=== PATIENT | female | born 1995 ===

== ENCOUNTER 2019-04-23 15:32 | Emergency (ER) | payer SELFPAY ==
[2019-04-23] MEDS ORDERED: Sodium Chloride 0.9% 1,000 ML IV ONE (16:43)
--- NOTE | 2019-04-23 17:04 | EDM.PDOC ---
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 Patient states she believes she is approximately 17 weeks gestation but has not received any care and is just guessing her last menstrual period. Patient states over the top past 2 weeks she has had spotting and she has not gone in to see anybody regarding this. Patient states starting this morning she was passing large amounts of clots. Patient states she then decided to come to the ED due to the excess amount of clot she was passing. Patient expresses a cramping like sensation as if she is having her menstrual cycle but denies any other abdominal pain or other symptoms at this time. Patient denies any health history. Patient denies fever, chills, chest pain, shortness of breath, or cough. Denies headache, neck stiff ness, change in vision, syncope, or near syncope. Denies nausea, vomiting, diarrhea, constipation, or dysuria. Has not noted any blood in urine or stool. Patient has been eating and drinking appropriately. Review of systems: As per history of present illness and below otherwise all systems reviewed and negative. Past medical history: As per history of present illness and as reviewed below otherwise noncontributory. Surgical history: As per history of present illness and as reviewed below otherwise noncontributory. Social history: See social history for further information Family history: As per history of present illness and as reviewed below otherwise noncontributory. Physical exam: General: Patient is alert, oriented, and in no acute distress. Patient sitting comfortably on exam table. HEENT: Atraumatic, normocephalic, pupils equal and reactive bilaterally, negative for conjunctival pallor or scleral icterus, mucous membranes moist, TMs normal bilaterally, throat clear, neck supple, nontender, trachea midline. No drooling or trismus noted. No meningeal signs. No hot potato voice noted. Lungs: Clear to auscultation, breath sounds equal bilaterally, chest nontender. Heart: S1S2, regular rate and rhythm without overt murmur Abdomen: Soft, nondistended, nontender. Negative for masses or hepatosplenomegaly. Negative for costovertebral tenderness. Pelvis: Stable nontender. Genitourinary: While performing pelvic exam, the products of conception did pass and was in the vaginal vault. Specimen collection supplies were collected and provided to lab. Large amounts of clotting in the vaginal vault. External genitalia grossly unremarkable. Rectal: Deferred. Skin: Intact, warm, dry. No lesions or rashes noted. Extremities: Atraumatic, negative for cords or calf pain. Neurovascular unremarkable. Neuro: Awake, alert, oriented. Cranial nerves II through XII unremarkable. Cerebellum unremarkable. Motor and sensory unremarkable throughout. Exam nonfocal. Notes: Patient is O+ blood type. Continue to monitor patient after passing the products of conception to ensure that bleeding has slowed Dr. Wiley consulted on patient who has come in to personally see the patient. See his official consult note for further disposition for patient. Discussed the importance for follow-up with an MEMORY CARE PROGRAM DIRECTOR. Voices understanding and is agreeable to plan of care. Denies any further questions or concerns at this time. Diagnostics: CBC, CMP, UA, urine hCG, hCG Quant, transvaginal ultrasound, Rh/blood type Therapeutics: Saline Prescription: None Impression: Complete Plan: 1. Pelvic rest until cleared by your OBGYN (no tampons, sex, etc...) 2. Tylenol or ibuprofen as needed for pain and discomfort. 3. Follow up with your MEMORY CARE PROGRAM DIRECTOR as discussed. Return to the ED as needed and as discussed. Definitive disposition and diagnosis as appropriate pending reevaluation and review of above. Treatments DOCUMENT IMAGING MANAGER: Reports: IV/IO, Other (see below) Other Treatments DOCUMENT IMAGING MANAGER: IV fluids NS 250cc lower abd cramping Pain Score (Numeric/FACES): 8 - Related Data Allergies Allergy/AdvReac Type Severity Reaction Status Date / Time No Known Allergies Allergy Verified 04/23/19 15:38 Home Meds: Home Meds . [No Known Home Meds] 04/23/19 [History] Past Medical History - Infectious Disease History Infectious Disease History: Reports: None - Past Surgical History HEENT Surgical History: Reports: Oral Surgery Social & Family History - Family History Family Medical History: Noncontributory - Tobacco Use Smoking Status *Q: Never Smoker - Recreational Drug Use Recreational Drug Use: No ED ROS GENERAL - Review of Systems Review Of Systems: ROS reveals no pertinent complaints other than HPI. ED EXAM - Physical Exam Exam: See Below (see dictation) Course - Vital Signs Last Recorded V/S: Last Vital Signs Temp 36.6 C 04/23/19 15:34 Pulse 86 04/23/19 18:12 Resp 18 04/23/19 18:12 BP 109/59 L 04/23/19 18:12 Pulse Ox 99 04/23/19 18:12 - Orders/Labs/Meds Orders: Active Orders 24 hr Category Date Time Status Notify Provider Consults [RC] ASDIRECTED Care 04/23/19 18:13 Active Consult to Physician [CONS] Stat Cons 04/23/19 18:12 Active HCG QUALITATIVE,URINE [URCHEM] Stat Lab 04/23/19 15:45 Ordered UA RFX ZAIRA AND CULT IF INDIC [URIN] Stat Lab 04/23/19 15:44 Ordered Labs: Laboratory Tests 04/23/19 04/23/19 04/23/19 Range/Units 15:55 15:55 15:55 WBC 9.30 (4.0-11.0) K/uL RBC 4.03 L (4.30-5.90) M/uL Hgb 12.9 (12.0-16.0) g/dL Hct 38.9 (36.0-46.0) % MCV 96.5 (80.0-98.0) fL MCH 32.0 (27.0-32.0) pg MCHC 33.2 (31.0-37.0) g/dL RDW Std Deviation 45.3 (28.0-62.0) fl RDW Coeff of Jimenez 13 (11.0-15.0) % Plt Count 365 (150-400) K/uL MPV 10.90 (7.40-12.00) fL Neut % (Auto) 62.9 (48.0-80.0) % Lymph % (Auto) 28.2 (16.0-40.0) % [place] % (Auto) 7.3 (0.0-15.0) % Eos % (Auto) 1.2 (0.0-7.0) % Baso % (Auto) 0.4 (0.0-1.5) % Neut # (Auto) 5.9 H (1.4-5.7) K/uL Lymph # (Auto) 2.6 H (0.6-2.4) K/uL [place] # (Auto) 0.7 (0.0-0.8) K/uL Eos # (Auto) 0.1 (0.0-0.7) K/uL Baso # (Auto) 0.0 (0.0-0.1) K/uL Nucleated RBC % 0.0 /100WBC Nucleated RBCs # 0 K/uL HCG, Quant 417.0 mIU/mL Blood Type O POSITIVE Meds: Medications Discontinued Medications Generic Name Dose Route Start Last Admin Trade Name Frefarzana PRN Reason Stop Dose Admin Sodium Chloride 1,000 mls @ 999 mls/hr 04/23/19 16:43 04/23/19 16:50 Normal Saline IV 04/23/19 17:43 999 mls/hr .Bolus ONE Administration Departure - Departure Time of Disposition: 18:34 Disposition: Home, Self-Care 01 Clinical Impression: Spontaneous , Complete - Discharge Information Referrals: PCP,Unknown [Primary Care Provider] - Forms: ED Department Discharge Additional Instructions: The following information is given to patients seen in the emergency department who are being discharged to home. This information is to outline your options for follow-up care. We provide all patients seen in our emergency department with a follow-up referral. The need for follow-up, as well as the timing and circumstances, are variable depending upon the specifics of your emergency department visit. If you don't have a primary care physician on staff, we will provide you with a referral. We always advise you to contact your personal physician following an emergency department visit to inform them of the circumstance of the visit and for follow-up with them and/or the need for any referrals to a consulting specialist. The emergency department will also refer you to a specialist when appropriate. This referral assures that you have the opportunity for follow-up care with a specialist. All of these measure are taken in an effort to provide you with optimal care, which includes your follow-up. Under all circumstances we always encourage you to contact your private physician who remains a resource for coordinating your care. When calling for follow-up care, please make the office aware that this follow-up is from your recent emergency room visit. If for any reason you are refused follow-up, please contact the [facility] Emergency Department at and asked to speak to the emergency department charge nurse. [facility] [address] [place] [address] [facility] [address] [place] [id number] [facility] [address] [place] [address] 1. Pelvic rest until cleared by your OBGYN (no tampons, sex, etc...) 2. Tylenol or ibuprofen as needed for pain and discomfort. 3. Follow up with your MEMORY CARE PROGRAM DIRECTOR as discussed. Return to the ED as needed and as discussed. - My Orders Last 24 Hours: My Active Orders 04/23/19 15:44 UA RFX ZAIRA AND CULT IF INDIC [URIN] Stat 04/23/19 15:45 HCG QUALITATIVE,URINE [URCHEM] Stat 04/23/19 18:12 Consult to Physician [CONS] Stat 04/23/19 18:13 Notify Provider Consults [RC] ASDIRECTED - Assessment/Plan Last 24 Hours: My Active Orders 04/23/19 15:44 UA RFX ZAIRA AND CULT IF INDIC [URIN] Stat 04/23/19 15:45 HCG QUALITATIVE,URINE [URCHEM] Stat 04/23/19 18:12 Consult to Physician [CONS] Stat 04/23/19 18:13 Notify Provider Consults [RC] ASDIRECTED
--- NOTE | 2019-04-23 17:09 | US ---
INDICATION: with vaginal bleeding TECHNIQUE: Ultrasound OB pelvis transabdominal. Real-time shi-scale imaging of the pelvis was performed. COMPARISON: None FINDINGS: No sign of viable intrauterine or ectopic . Irregular fluid collection is in the endometrial canal. No adnexal lesions. IMPRESSION: Findings consistent with a spontaneous in progress. Dictated by Octaviano Cardoso MD @ Apr 23 2019 5:00PM Signed by Dr. Octaviano Cardoso @ Apr 23 2019 5:06PM
== END 2019-04-23 20:13 | disposition home or self-care (01) ==
LOC: MW.ED 15:32
DX: O03.9 Complete or unspecified spontaneous abortion without complication (principal)
CPT/HCPCS: 36415; 76801; 84702; 85025; 86900; 86901; 96360; 96361; 99285; J7040